=== PATIENT | female | born 1995 | race Caucasian/White ===

== ENCOUNTER 2018-02-20 21:15 | Emergency (ER) | payer MEDICAID ==
[~2018-02-20] VITALS: Ht 167.6 cm; Wt 81.8 kg
[2018-02-20 21:59] LABS: INFLUENZA TYPE A NEGATIVE FOR TYPE A (NEGATIVE); INFLUENZA TYPE B NEGATIVE FOR TYPE B (NEGATIVE)
[2018-02-20 22:16] LABS: APPEARANCE,URINE CLOUDY (CLEAR); BILIRUBIN,URINE NEGATIVE (NEGATIVE); GLUCOSE, URINE (UA) NEGATIVE (NEGATIVE); KETONES,URINE NEGATIVE (NEGATIVE); LEUKOCYTE ESTERASE ,URINE MODERATE (NEGATIVE); NITRATE,URINE NEGATIVE (NEGATIVE); OCCULT BLOOD,URINE LARGE (NEGATIVE); PROTEIN,URINE NEGATIVE (NEGATIVE); UROBILINOGEN,URINE 0.2 mg/dL (<=1.0)
[2018-02-20 22:23] LABS: RBC,URINE 0-2 /HPF (0-2)
[2018-02-20 22:24] LABS: BACTERIA,URINE Few /HPF (None Seen); SQUAMOUS EPITHELIAL CELL,UR Moderate /LPF (None Seen)
[2018-02-20 22:26] LABS: YEAST,URINE Few /HPF (None Seen)
[2018-02-20 23:06] VITALS: BP 119/73
== END 2018-02-20 23:07 | disposition home or self-care (01) ==
LOC: EMS 21:16
DX: B34.9 Viral infection, unspecified (principal); J45.909 Unspecified asthma, uncomplicated
CPT/HCPCS: 87086; 87804